=== PATIENT | female | born 1965 | race Hispanic/Latino ===

== ENCOUNTER 2018-04-19 00:04 | Inpatient (IN) | payer OTHER ==
[~2018-04-19] VITALS: Ht 157.5 cm; Wt 71.4 kg
[2018-04-19] VITALS (37 sets, daily range): BP systolic 132–191; BP diastolic 78–134
[2018-04-19] MEDS ORDERED: LABETALOL HCL 5 MG/ML 20ML VIAL IV ONE (00:17)
[2018-04-19 00:40] LABS: BASOPHILS % (AUTO) 0.5 % (0.0-5.0); HEMATOCRIT 46.4 % (36-48); LYMPHOCYTES % (AUTO) 47.8 % (21.0-51.0); MEAN CORPUSCULAR HEMOGLOBIN 28.9 pg (27.0-33.0); MEAN CORPUSCULAR HGB CONC 34.3 g/dL (32.0-36.0); MEAN CORPUSCULAR VOLUME 84.3 fL (79-99); MONOCYTES % (AUTO) 6.8 % (3.0-13.0); NEUTROPHILS % (AUTO) 42.9 % (40.0-77.0); NUCLEATED RED BLOOD CELLS 0.2 % (0.0-0.19); PLATELET COUNT (AUTO) 197 K/uL (130-400); RED BLOOD CELL COUNT(AUTO) 5.51 MIL/uL (4.00-5.50); RED CELL DISTRIBUTION WIDTH 13.1 % (11.0-15.5); WHITE BLOOD COUNT (AUTO) 6.6 K/uL (4.8-10.8)
[2018-04-19] MEDS ORDERED: IOHEXOL-350 75 ML VIAL IV ONE (00:40)
[2018-04-19 00:43] LABS: ALBUMIN 3.8 g/dL (3.5-5.0); BILIRUBIN,TOTAL 0.7 mg/dL (0.2-1.0); POTASSIUM 3.6 mmol/L (3.5-5.1); TOTAL PROTEIN, SERUM 8.3 g/dL (6.0-8.3)
[2018-04-19 00:47] LABS: APPEARANCE,URINE Clear (CLEAR); BILIRUBIN,URINE Negative (NEGATIVE); COLOR,URINE Yellow (YELLOW); GLUCOSE, URINE (UA) >=1000 mg/dL (NEGATIVE); INR 0.88 (0.85-1.15); KETONES,URINE Negative (NEGATIVE); LEUKOCYTE ESTERASE ,URINE Negative (NEGATIVE); NITRATE,URINE Negative (NEGATIVE); OCCULT BLOOD,URINE Negative (NEGATIVE); PARTIAL THROMBOPLASTIN TIME 27.6 SEC (26.3-35.5); PH,URINE 7.5 (5.0-8.0); PROTEIN,URINE Negative (NEGATIVE); PROTHROMBIN TIME 9.3 SEC (9.6-11.6); UROBILINOGEN,URINE 0.2 mg/dL (0.2-1.0)
[2018-04-19 00:53] LABS: AMPHET/METH SCREEN,URINE NEGATIVE (NEGATIVE); BARBITURATE SCREEN, URINE NEGATIVE (NEGATIVE); BENZODIAZEPINES SCREEN,URINE NEGATIVE (NEGATIVE); CANNABINOID SCREEN,URINE NEGATIVE (NEGATIVE); COCAINE SCREEN,URINE NEGATIVE (NEGATIVE); OPIATE SCREEN,URINE NEGATIVE (NEGATIVE); PHENCYCLIDINE SCREEN,URINE NEGATIVE (NEGATIVE)
[2018-04-19 01:04] LABS: BACTERIA,URINE Rare /HPF (None Seen); RBC,URINE 0-1 /HPF (0-1); SQUAMOUS EPITHELIAL CELL,UR 0-2 /HPF (0-2); WBC,URINE 0-1 /HPF (0-1)
[2018-04-19] MEDS ORDERED: NICARDIPINE IN NACL, ISO-OSM 200 ML IV ONE (01:21)
[2018-04-19] MEDS ORDERED: ALTEPLASE 100 MG VIAL ONE (01:22)
[2018-04-19] MEDS ORDERED: SODIUM CHLORIDE 0.9% 50 ML IV ONE (02:37)
[2018-04-19] MEDS ORDERED: ACETAMINOPHEN 325 MG TAB PO PRN (05:00)
[2018-04-19] MEDS ORDERED: ONDANSETRON HCL 4 MG/2 ML VIAL IV PRN (05:00)
[2018-04-19 05:32] LABS: CHOLESTEROL 314 mg/dL (<200); HDL CHOLESTEROL 55 mg/dL (35-85); LDL DIRECT 196 mg/dL (0-99); TRIGLYCERIDES 397 mg/dL (30-200)
[2018-04-19] MEDS ORDERED: INSULIN HUMULIN R 100 UNIT/ML 3ML ONE ×2 (06:05→09:21)
[2018-04-19] MEDS ORDERED: INSULIN HUMULIN R 100 UNIT/ML 3ML SQ SCH (07:30)
[2018-04-19] MEDS ORDERED: FAMOTIDINE/PF 20 MG/2 ML VIAL IV ONE (09:20)
[2018-04-19] MEDS ORDERED: DEXTROSE 50%-WATER 50 ML DISP.SYRIN IV PRN (09:30)
[2018-04-19] MEDS ORDERED: GLUCAGON 1MG KIT 1 MG ML IM PRN (09:30)
[2018-04-19] MEDS: FAMOTIDINE/PF 20 MG/2 ML VIAL IV SCH ×2 (11:56→20:45)
[2018-04-19] MEDS: INSULIN HUMULIN R 100 UNIT/ML 3ML SQ SCH ×3 (12:30→20:48)
--- NOTE | 2018-04-19 12:50 | NUR ---
DYSPHAGIA EVAL COMPLETE. -S/S OF ASPIRATION. RECOMMEND REGULAR, THIN LIQUID DIET; PILLS WHOLE WITH LIQUIDS. PATIENT INFORMATION: Pt IS A 53 Y.O. FEMALE REFERRED FOR A BEDSIDE DYSPHAGIA EVALUATION SECONDARY TO ADMITTED DIAGNOSIS OF CVA (ACUTE ISCHEMIC INVOLVING RIGHT MCA). Pt AAOX3 AND SERVED THE PRIMARY INFORMANT FOR MEDICAL AND SOCIAL HISTORY. Pt HAS A PAST MEDICAL HISTORY SIGNIFICANT FOR NON-INSULIN DEPENDENT DIABETES, HYPERTENSION, CVA, TUBAL LIGATION, HYPERLIPIDEMIA, AND TOBACCO DEPENDENT. EVALUATION: SWALLOW FUNCTION AND EFFICIENCY WITHIN FUNCTIONAL LIMITS. ORAL MOTOR STRENGTH, COORDINATION, AND ROM WITHIN FUNCTIONAL LIMITS. LARYNGEAL ELEVATION/EXCURSION STRONG WITH TIMELY PHARYNGEAL RESPONSE. NO OVERT SIGNS OR SYMPTOMS OF ASPIRATION PRESENT AT BEDSIDE. VOCAL QUALITY CLEAR WITH NO THROAT CLEAR OR COUGH RESPONSE PRESENT. RECOMMENDATIONS: 1. REGULAR TEXTURE, THIN LIQUID DIET; PILLS WHOLE WITH LIQUIDS. 2. COMPENSATORY STRATEGIES (PROPHYLAXIS): *SEATED AT 90 DEGREE ANGLE G-CODES SWALLOWING: [id number] Addendum: 04/19/18 at 1254 by GERALD JAY [facility] Amended: Links added.
[2018-04-19] MEDS ORDERED: NICARDIPINE HCL 100 MG in SODIUM CHLORIDE 0.9% 60 ML IV SCH (14:30)
[2018-04-19] MEDS: NICOTINE 21 MG/ 24 HR PATCH TD SCH (15:32)
[2018-04-19] MEDS: ATORVASTATIN CALCIUM 40 MG TABLET PO SCH (20:45)
[2018-04-20] VITALS (19 sets, daily range): BP systolic 114–188; BP diastolic 65–102
[2018-04-20 04:06] LABS: HEMATOCRIT 43.9 % (36-48); MEAN CORPUSCULAR HEMOGLOBIN 29.2 pg (27.0-33.0); MEAN CORPUSCULAR HGB CONC 34.7 g/dL (32.0-36.0); MEAN CORPUSCULAR VOLUME 84.2 fL (79-99); NUCLEATED RED BLOOD CELLS 0.1 % (0.0-0.19); PLATELET COUNT (AUTO) 216 K/uL (130-400); RED BLOOD CELL COUNT(AUTO) 5.21 MIL/uL (4.00-5.50); RED CELL DISTRIBUTION WIDTH 13.6 % (11.0-15.5); WHITE BLOOD COUNT (AUTO) 9.1 K/uL (4.8-10.8)
[2018-04-20 04:13] LABS: HEMOGLOBIN A1C 10.6 % (4.0-6.0)
[2018-04-20 04:19] LABS: CREATININE 0.8 mg/dL (0.5-1.5); POTASSIUM 3.6 mmol/L (3.5-5.1)
[2018-04-20] MEDS: INSULIN HUMULIN R 100 UNIT/ML 3ML SQ SCH ×4 (05:53→21:03)
[2018-04-20] MEDS: FAMOTIDINE/PF 20 MG/2 ML VIAL IV SCH ×2 (10:01→21:01)
[2018-04-20] MEDS: NICOTINE 21 MG/ 24 HR PATCH TD SCH (10:02)
[2018-04-20] MEDS: INSULIN LISPRO 100 UNIT/ML 3ML SQ SCH ×2 (11:49→18:29)
[2018-04-20] MEDS: CLOPIDOGREL BISULFATE 75 MG TAB PO SCH (11:49)
[2018-04-20] MEDS ORDERED: LISINOPRIL 10 MG TABLET PO SCH (14:00)
--- NOTE | 2018-04-20 16:42 | NUR ---
RD Notification - Trigger Patient with 60gm CCD with no report of GI distress. Patient with fair PO at 50% although patient states good appetite. Patient eating lunch at time of visit. Patient LBM 04/18/18. Patient with elevated serum lipids;Rec to modify diet to Heart Healthy. Patient monitored labs: Na 135, Cl 99, Triglycerides 214, Chol 256, LDL 169. RD to continue to monitor nutritional labs and PO intake. Please notify RD as nutritional concerns arise. Thank you. Addendum: 04/20/18 at [address] RD Amended: Links added.
--- NOTE | 2018-04-20 16:53 | NUR ---
DC PLAN ASKED TO RETURN. JAMEY WILL CONTINUE TO FOLLOW. Addendum: 04/20/18 at 1654 by WENDI ROCA RN CM Amended: Links added.
[2018-04-20] MEDS ORDERED: HYDRALAZINE HCL 20 MG/ML VIAL IV PRN (17:45)
--- NOTE | 2018-04-20 19:30 | NUR ---
ASSESSMENT: REPORT RECEIVED FROM CONY BEARDRAIL BENDER COMPLETED, PATIENT AWAKE , ALERT AND ORIENTED X 3, LEFT SIDE SLIGHTLY WEAKER THAN RIGHT WITH SLIGHT LEFT FACIAL DROOP WITH NUMBNESS AND TINGLING TO LEFT ARM ,LEG AND LEFT FACE. LUNGS CLEAR ON ROOM AIR, ABDOMEN SOFT BM TODAY, BROWN , FORMED. NATALEE HOSE ON . CALL OLMEDO IN REACH.
[2018-04-20] MEDS: ATORVASTATIN CALCIUM 40 MG TABLET PO SCH (21:01)
[2018-04-20] MEDS: METOPROLOL TARTRATE 25 MG TAB PO SCH (21:01)
[2018-04-20] MEDS: INSULIN GLARGINE 100 UNITS/ML 10 ML VIAL SQ SCH (21:02)
--- NOTE | 2018-04-20 22:00 | NUR ---
PATIENT TRANSFERRED TO ROOM 203 VIA BED ACCOMPANIED BY FAMILY MEMBER.VS STABLE. REPORT GIVEN TO CONY MUNIZ
[2018-04-21 03:05] VITALS: BP 145/71
[2018-04-21 03:59] LABS: POTASSIUM 3.8 mmol/L (3.5-5.1)
[2018-04-21 04:07] LABS: HEMATOCRIT 40.9 % (36-48); MEAN CORPUSCULAR HEMOGLOBIN 29.5 pg (27.0-33.0); MEAN CORPUSCULAR HGB CONC 34.9 g/dL (32.0-36.0); MEAN CORPUSCULAR VOLUME 84.7 fL (79-99); NUCLEATED RED BLOOD CELLS 0.1 % (0.0-0.19); PLATELET COUNT (AUTO) 185 K/uL (130-400); RED BLOOD CELL COUNT(AUTO) 4.83 MIL/uL (4.00-5.50); RED CELL DISTRIBUTION WIDTH 13.4 % (11.0-15.5); WHITE BLOOD COUNT (AUTO) 7.4 K/uL (4.8-10.8)
[2018-04-21] MEDS: INSULIN LISPRO 100 UNIT/ML 3ML SQ SCH (06:32)
[2018-04-21] MEDS: INSULIN HUMULIN R 100 UNIT/ML 3ML SQ SCH ×3 (06:33→16:35)
[2018-04-21 08:07] VITALS: BP 123/52
[2018-04-21] MEDS: CLOPIDOGREL BISULFATE 75 MG TAB PO SCH (08:19)
[2018-04-21] MEDS: FAMOTIDINE/PF 20 MG/2 ML VIAL IV SCH ×2 (08:19→20:58)
[2018-04-21] MEDS: METOPROLOL TARTRATE 25 MG TAB PO SCH ×2 (08:19→20:59)
[2018-04-21] MEDS: LISINOPRIL 10 MG TABLET PO SCH (08:20)
[2018-04-21] MEDS: NICOTINE 14 MG/ 24 HR PATCH TD SCH ×2 (08:23→08:52)
--- NOTE | 2018-04-21 09:28 | NUR ---
PT NOTE: PATIENT PRESENTS /C POOR PROPRIOCEPTION TO LLE. PATIENT PERFORMED STANDING PRE GAIT EX'S WITH EMPHASIS ON WT SHIFT TO PROMOTE IMPROVED GAIT QUALITY AND SAFETY. PATIENT PERFORMED TRANSITION STEPS FROM BED-CHAIR MOD/MIN ASSISTX2. Addendum: 04/21/18 at 0958 by DUTCH LOPEZ PT Amended: Links added.
[2018-04-21 11:54] VITALS: BP 117/77
[2018-04-21] MEDS: METFORMIN HCL 500 MG TABLET PO SCH ×2 (12:02→16:33)
--- NOTE | 2018-04-21 15:26 | NUR ---
DC PLAN VISITED WITH PATIENT. PATIENT LIVES WITH SPOUSE. INDEPENDENT ABLE TO PERFORM ADL'S. PATIENT HAS NO SERVICES OR DME'S. FEELS SAFE TO RETURN ON HOME. GAVE INFORMATION REGARDING STROKE. PATIENT FROM [place] RESIDENT THERE. PLAN TO RETURN. PATIENT CHILDREN AVAILABLE IN [place] AND WOULD BE ABLE TO HELP AT HOME. GAVE INFO REGARDING DME SINCE PATIENT INTERESTED IN WALKER OR CANE. Addendum: 04/21/18 at 1533 by WENDI ROCA RN CM Amended: Links added.
[2018-04-21 16:00] VITALS: BP 148/77
[2018-04-21 19:37] VITALS: BP 133/83
[2018-04-21] MEDS: ATORVASTATIN CALCIUM 40 MG TABLET PO SCH (20:58)
[2018-04-21] MEDS: INSULIN GLARGINE 100 UNITS/ML 10 ML VIAL SQ SCH (21:00)
[2018-04-22 00:29] VITALS: BP 107/54
[2018-04-22 04:00] LABS: HEMATOCRIT 39.3 % (36-48); MEAN CORPUSCULAR HEMOGLOBIN 29.2 pg (27.0-33.0); MEAN CORPUSCULAR HGB CONC 34.5 g/dL (32.0-36.0); MEAN CORPUSCULAR VOLUME 84.8 fL (79-99); PLATELET COUNT (AUTO) 178 K/uL (130-400); RED BLOOD CELL COUNT(AUTO) 4.64 MIL/uL (4.00-5.50); RED CELL DISTRIBUTION WIDTH 13.3 % (11.0-15.5); WHITE BLOOD COUNT (AUTO) 7.1 K/uL (4.8-10.8)
[2018-04-22 04:09] LABS: CREATININE 0.8 mg/dL (0.5-1.5); POTASSIUM 3.9 mmol/L (3.5-5.1)
[2018-04-22 04:16] VITALS: BP 155/91
[2018-04-22] MEDS: INSULIN HUMULIN R 100 UNIT/ML 3ML SQ SCH ×3 (06:30→16:29)
[2018-04-22 07:44] VITALS: BP 128/90
[2018-04-22] MEDS ORDERED: GLIPIZIDE XL 2.5MG TAB PO SCH (08:00)
--- NOTE | 2018-04-22 08:23 | NUR ---
Report given to Sigrid Vega Patient in stable condition.
[2018-04-22] MEDS: NICOTINE 14 MG/ 24 HR PATCH TD SCH (09:00)
[2018-04-22] MEDS: LISINOPRIL 10 MG TABLET PO SCH (10:28)
[2018-04-22] MEDS: CLOPIDOGREL BISULFATE 75 MG TAB PO SCH (10:28)
[2018-04-22] MEDS: FAMOTIDINE/PF 20 MG/2 ML VIAL IV SCH (10:28)
[2018-04-22] MEDS: METOPROLOL TARTRATE 25 MG TAB PO SCH (10:28)
[2018-04-22] MEDS: METFORMIN HCL 500 MG TABLET PO SCH ×3 (10:28→17:06)
[2018-04-22 11:36] VITALS: BP 145/89
--- NOTE | 2018-04-22 12:12 | NUR ---
MD BRIDGETT DÍAZ VISITED WITH PATIENT. POC DISCUSSED. NEW ORDERS RECEIVED AND CARRIED OUT. PATIENT AWARE. NO QUESTIONS OR CONCERNS VOICED AT THIS TIME. CALL LIGHT WITHIN REACH. WILL CONTINUE TO BE OBSERVED. Addendum: 04/22/18 at 1214 by ROMINA WINCHESTER RN RN Amended: Links added.
[2018-04-22] MEDS ORDERED: METF-446 PO (14:10)
[2018-04-22] MEDS ORDERED: METO25 PO (14:10)
[2018-04-22] MEDS ORDERED: PEN-105 MC (14:10)
[2018-04-22] MEDS ORDERED: INSU3INS3 SQ (14:10)
[2018-04-22] MEDS ORDERED: CLOP75TA14 PO (14:10)
[2018-04-22] MEDS ORDERED: ATOR40TA69 PO (14:10)
[2018-04-22] MEDS ORDERED: GLIP5TAB11 PO (14:10)
[2018-04-22 16:13] VITALS: BP 134/93
--- NOTE | 2018-04-22 17:33 | NUR ---
DISCHARGE PATIENT GIVEN DISCHARGE INSTRUCTIONS AND EDUCATION, INCLUDING SIDE EFFECTS ON NEW PRESCRIBED MEDICATIONS AND FOLLOW UP APPOINTMENT NEEDED TO BE MADE WITH PCP IN 7 DAYS. PATIENT VERBALIZED UNDERSTANDING OF ALL EDUCATION GIVEN VIA TEACH BACK. NO QUESTIONS OR CONCERNS VOICED AT THIS TIME. IV DISCONTINUED, CATHETER INTACT. EMS MANAGER DISCONTINUED, MONITOR AWARE. NO SIGNS OF DISTRESS NOTED UPON DISCHARGE. PATIENT LEFT VIA WHEELCHAIR TO PRIVATE CAR. ALL BELONGINGS TAKEN WITH. Addendum: 04/22/18 at 1737 by ROMINA WINCHESTER RN RN Amended: Links added.
== END 2018-04-22 17:39 | disposition home or self-care (01) | DRG 62 ==
LOC: EDH 00:04 → EDHIP 00:05 → OBSVTOIN 00:05 → 2BH 11:58 → 2AH 04-20 22:15
PROVIDERS: ADMIT Internal Medicine; ATTEND Internal Medicine
DX: I63.511 Cerebral infarction due to unspecified occlusion or stenosis of right middle cerebral artery (principal); G81.94 Hemiplegia, unspecified affecting left nondominant side; E87.1 Hypo-osmolality and hyponatremia; I50.32 Chronic diastolic (congestive) heart failure; E11.65 Type 2 diabetes mellitus with hyperglycemia; F17.210 Nicotine dependence, cigarettes, uncomplicated; E78.2 Mixed hyperlipidemia; I11.0 Hypertensive heart disease with heart failure; J44.9 Chronic obstructive pulmonary disease, unspecified; R29.810 Facial weakness; Z79.02 Long term (current) use of antithrombotics/antiplatelets; Z91.19 Patient's noncompliance with other medical treatment and regimen; Z91.14 Patient's other noncompliance with medication regimen; Z88.6 Allergy status to analgesic agent; Z88.0 Allergy status to penicillin; Z86.73 Personal history of transient ischemic attack (TIA), and cerebral infarction without residual deficits
CPT/HCPCS: 36415; 70450; 70496; 70498; 70551; 71045; 80048; 80053; 80061; 80305; 81001; 82550; 82948; 83036; 84484; 85025; 85027; 85610; 85730; 86850; 86900; 86901; 92610; 93005; 93306; 97039; 99291; G0378; J1815; J2997; J3490; Q9967